=== PATIENT | female | born 1970 | race Caucasian/White ===

== ENCOUNTER 2020-11-02 22:43 | Emergency (ER) | payer BC, OTHER ==
[2020-11-02] MEDS ORDERED: Ketorolac Tromethamine 30 MG/ML VIAL ONE (23:34)
[2020-11-02] MEDS ORDERED: Acetaminophen 500 MG TAB ONE (23:34)
[2020-11-02] MEDS ORDERED: Diazepam 5 MG TAB ONE (23:35)
== END 2020-11-03 00:33 | disposition home or self-care (01) ==
LOC: ERS 22:43
DX: M25.512 Pain in left shoulder (principal); F17.210 Nicotine dependence, cigarettes, uncomplicated
CPT/HCPCS: 93005; 96372; J1885